=== PATIENT | female | born 1950 | race Caucasian/White ===

== ENCOUNTER 2018-11-14 18:34 | Emergency (ER) | payer BC ==
--- NOTE | 2018-11-14 18:41 | Emergency Department Record ---
History of Present Illness - General Chief complaint: Lower Extremity Pain Stated complaint: PAIN IN LEFT LEG Time Seen by Provider: 11/14/18 18:40 Source: Patient - History of Present Illness Initial comments: The patient states that she has had 2 weeks of left posterior thigh to knee pain. She denies injury or swelling. She noticed it is worse when she carries chicken and duck feed (about 50 pounds) or when she walks. 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 At first in the morning she wakes up with sore stiff knee in the back. She had an ultrasound done 11-07-18 which was read as negative. She also states that sometimes the knee locks slightly, but she denies clicking or swelling. She denies back pain, bowel or bladder problems. She has no health problems. She has not been using anything for pain. - Related Data Home Medications Medication Instructions Recorded Confirmed Last Taken Aspirin [Aspir-Low] 81 mg PO DAILY 11/14/18 11/14/18 11/14/18 Allergies Allergy/AdvReac Type Severity Reaction Status Date / Time No Known Drug Allergies Allergy Verified 11/14/18 18:46 Review of Systems Reviewed: No additional complaints except as noted below Constitutional: Reports: As per HPI. Denies: Chills, Fever, Malaise, Night sweats, Weakness, Weight change Eyes: Reports: As per HPI. Denies: Eye discharge, Eye pain, Photophobia, Vision change ENT: Reports: As per HPI. Denies: Congestion, Dental pain, Ear pain, Epistaxis, Hearing loss, Throat pain Respiratory: Reports: As per HPI. Denies: Cough, Dyspnea, Hemoptysis, Stridor, Wheezes Cardiovascular: Reports: As per HPI. Denies: Arrhythmia, Chest pain, Dyspnea on exertion, Edema, Murmurs, Orthopnea, Palpitations, Paroxysmal nocturnal dyspnea, Rheumatic Fever, Syncope Endocrine: Reports: As per HPI. Denies: Fatigue, Heat or cold intolerance, Polydipsia, Polyuria Gastrointestinal: Reports: As per HPI. Denies: Abdominal pain, Constipation, Diarrhea, Hematemesis, Hematochezia, Melena, Nausea, Vomiting Genitourinary: Reports: As per HPI. Denies: Abnormal menses, Discharge, Dyspareunia, Dysuria, Frequency, Hematuria, Incontinence, Retention, Urgency Musculoskeletal: Reports: As per HPI. Denies: Arthralgia, Back pain, Gout, Joint swelling, Myalgia, Neck pain Skin: Reports: As per HPI. Denies: Bruising, Change in color, Change in hair/nails, Lesions, Pruritus, Rash Neurological: Reports: As per HPI. Denies: Abnormal gait, Confusion, Headache, Numbness, Paresthesias, Seizure, Tingling, Tremors, Vertigo, Weakness Psychiatric: Reports: As per HPI. Denies: Anxiety, Auditory hallucinations, Depression, Homicidal thoughts, Suicidal thoughts, Visual hallucinations Hematological/Lymphatic: Reports: As per HPI. Denies: Anemia, Blood Clots, Easy bleeding, Easy bruising, Swollen glands Past Medical History - SOCIAL HISTORY Smoking Status: Never smoker Physical Exam - General General Appearance: Alert, Oriented x3, Cooperative, No acute distress - Head Head exam: Normal inspection - Eye Eye exam: Normal appearance, PERRL, EOMI. negative: Conjunctival injection, Nystagmus, Scleral icterus Pupils: Normal accommodation - ENT ENT exam: Normal exam, Mucous membranes moist, Normal external ear exam, Normal orophraynx, TM's normal bilaterally Ear exam: Normal external inspection. negative: External canal tenderness Nasal Exam: Normal inspection. negative: Discharge, Sinus tenderness Mouth exam: Normal external inspection, Tongue normal Teeth exam: Normal inspection. negative: Dental caries Throat exam: Normal inspection. negative: Tonsillar erythema, Tonsillar exudate - Neck Neck exam: Normal inspection, Full ROM. negative: Lymphadenopathy, Meningismus, Tenderness - Respiratory Respiratory exam: Normal lung sounds bilaterally. negative: Respiratory distress - Cardiovascular Cardiovascular Exam: Regular rate, Normal rhythm, Normal heart sounds - GI/Abdominal GI/Abdominal exam: Soft. negative: Tenderness - Rectal Rectal exam: Deferred - exam: Deferred - Extremities Extremities exam: Normal inspection, Full ROM, Normal capillary refill, Other (NO reproduceable tenderness in area of concern which is primarily behind knee, and slightly proximal and distal to knee. Color, temperature, pulses, motor and sensory strength all normal and equal bilaterally. No swelling. ROM of left hip painful on external rotation, ROM knee wnl. ). negative: Calf tenderness, Pedal edema - Back Back exam: Reports: Normal inspection, Full ROM. Denies: Muscle spasm, Rash noted, Tenderness - Neurological Neurological exam: Alert, Normal gait, Oriented X3, Reflexes normal - Psychiatric Psychiatric exam: Normal affect, Normal mood - Skin Skin exam: Dry, Intact, Normal color, Warm Course - Reevaluation(s) Reevaluation #1: Patient was offered ibuprofen but declined. 11/14/18 19:19 Medical Decision Making - Management Options [facility] Management: Additional Work-up Planned (e.g. ADM/Transfer/OP Study) (PCP follow up, PT or MRI or other out patient work up through PCP; off work tomorrow 11-15-18.) - Data Complexity MDM Data: X-Ray Ordered and/or Reviewed (No acute fracture or dislocation. Mild degenerative changes to knee, hip, pelvis. Per radiologist.) Disposition Clinical Impression: Left knee pain Qualifiers: Chronicity: acute Qualified Code(s): M25.562 - Pain in left knee Disposition: Home, Self-Care Return To Work/School Note Provided: Yes Condition: (1) Good Instructions: Knee Pain (ED) Additional Instructions: Decreased use of left knee. Ibuprofen 800mg with food or antacid three times daily for 1 week. Ice alternated with heat to left knee. Off work tomorrow 11-15-18. Follow up with PCP for possible PT or MRI if indicated and for recheck of your blood pressure which was elevated this visit. Forms: Patient Portal Access Quality - Quality Measures Quality Measures: N/A - Blood Pressure Screening Does Patient Have Any of the Following: No Blood Pressure Classification: Hypertensive Reading Systolic Measurement: 148 Diastolic Measurement: 96 Screening for High Blood Pressure: < Pre-Hypertensive BP, F/U Documented > [G8950] Pre-Hypertensive Follow-up Interventions: Follow-up with rescreen every year., Lifestyle modifications., Referral to alternative/primary care provider. Lifestyle Modification: Weight Reduction, Dietary Approaches to Stop Hypertension (DASH) Eating Plan, Dietary Sodium Restriction, Moderation in alcohol (ETOH) consumption
--- NOTE | 2018-11-17 18:07 | RADIOLOGY REPORT ---
EXAM: HIP,UNILAT, 1 VIEW LEFT HISTORY: PAIN, WORSE IN THE MORNING. TECHNIQUE: Single frontal pelvis and two views of the left hip. COMPARISON: No prior exams available for comparison. FINDINGS: No acute displaced fracture, subluxation, or dislocations identified. Mild degenerative changes of bilateral hips noted. Mild degenerative changes of the lower lumbar spine noted. Femoral head contours appear preserved. IMPRESSION: NO ACUTE DISPLACED FRACTURE OR DISLOCATION OF THE LEFT HIP. MILD DEGENERATIVE CHANGES. JOB NUMBER: [id number] [facility]
--- NOTE | 2018-11-17 18:08 | RADIOLOGY REPORT ---
EXAM: KNEE, LEFT 4 VIEWS HISTORY: KNEE AND THIGH PAIN, WORSE IN THE MORNING. TECHNIQUE: Four views of the left knee. COMPARISON: No prior exams available for comparison. FINDINGS: No acute displaced fracture, subluxation, or dislocations identified. No suprapatellar effusion. Joint spaces are preserved with trace spurring of the medial compartment. IMPRESSION: NO ACUTE DISPLACED FRACTURE OR SIGNIFICANT DEGENERATIVE CHANGES. JOB NUMBER: [id number] [facility]
== END 2018-11-14 20:25 | disposition home or self-care (01) ==
LOC: ER 18:34
DX: M25.562 Pain in left knee (principal); M79.652 Pain in left thigh
CPT/HCPCS: 99284